=== PATIENT | male | born 1995 | race Caucasian/White ===

== ENCOUNTER 2016-09-05 23:08 | Emergency (ER) | payer OTHER ==
[~2016-09-05] VITALS: Ht 170.2 cm; Wt 75.0 kg
[2016-09-05 23:18] VITALS: Ht 170.2 cm; Wt 75.0 kg
[2016-09-06] MEDS ORDERED: NAPR-1169 PO (00:09)
--- NOTE | 2016-09-06 00:09 | EMERGENCY ROOM VISIT NOTE ---
ED Visit Note First contact with patient: 23:23 Chief Complaint: Ankle Isn't Working, RIGHT Side Constant Sharp Pain History of Present Illness: Patient is a 21-year-old male who presents to the emergency department today for evaluation of pain to the RIGHT ankle. He reports that while running today he noticed pain to the lateral aspect of the ankle. There is no initial injury, however. He reports no new shoes or changes in running styles recently. He does run regularly. The patient reports pain with ambulation. He denies any numbness or tingling into the distal extremity. He rates his current discomfort as a 4/10. He is tried no pxzm-spw-cldrqpl medications for symptoms to this point. He denies any fevers, chills, foot pain, calf pain, knee pain, or hip pain. The patient reports no previous history of fracture or injury to the affected area. Medications: No current medications. Allergies: No medication allergies. PMH: No pertinent past medical history. SHx: Patient is a 21-year-old [employer] student who lives with roommate. ROS: All pertinent positive and negative review of systems are appropriately documented in the History of Present Illness. Physical Exam: VITAL SIGNS - Vital signs and nursing notes were reviewed. GENERAL - 21-year-old male stated age and in noticeable discomfort throughout the exam. MUSCULOSKELETAL - RIGHT ankle without erythema, edema, and ecchymosis. Mild tenderness to palpation appreciated over the lateral surface of the posterior ankle overlying the tendon structures. No tenderness extending into the foot or up the leg. +5/5 strength appreciated bilaterally. Pt with full AROM at affected joint. ANTERIOR DRAWER TEST: Unremarkable. EVERSION TEST: Unremarkable. INVERSION TEST: Unremarkable. SQUEEZE TEST: Unremarkable. NEUROLOGIC/VASCULAR - Neurovascularly intact distally with +3/5 dorsalis pedis pulses palpated bilaterally. Normal sensation to light and sharp touch appreciated distally. IMAGING: RIGHT ANKLE MIN 3 VIEWS ROUTINE CLINICAL HISTORY: lateral pain Right pain COMPARISON: None. DISCUSSION: The bones and joint spaces appear intact. There is no evidence of fracture, dislocation or bony disease. There is no evidence for soft tissue swelling. IMPRESSION: Negative study. ED Course: Patient was seen and evaluated by myself. Patient declined anything for their complaint of pain. X-rays were obtained of the affected ankle. Imaging results as above. Images were discussed and reviewed with the patient who acknowledges understanding. Patient will utilize his own splint for comfort. Patient was provided Naprosyn for pain control at home. Patient educated on worrisome symptoms for return visit to the emergency department. Patient with follow-up with their primary care provided in 4-5 days if their symptoms are not improving. Patient discharged to home in good condition. In the evaluation and treatment of this patient, the following differential diagnoses were considered: Ankle Fracture, Ankle Sprain, Distal Fibula Fracture , Distal Tibia Fracture, Foot Fracture, Maisonneuve Fracture. Impression: RIGHT Ankle Pain - Strain Discharge Instructions: You have been treated in the Emergency Department for your RIGHT Ankle Pain - Tendon Strain. You have been prescribed Naprosyn (naproxen). This is an anti-inflammatory medication used to help decrease your symptoms and improve your pain. Please take this medication as prescribed. It is best to take this medication with food. Please to not take this antibiotic with other NSAIDS including: Ibuprofen , Advil, Motrin, Aspirin, Aleve, Celebrex, etc. For pain control, you can use the following ytgk-zbt-kbgaucl medicines (if >12 yo): - Regular strength (325mg/tab) Tylenol (acetaminophen) 2 tabs every 4-6 hours as needed. Do not exceed 12 tablets in a 24 hour period. Avoid taking more than 4 grams (4000 mg) of Tylenol per day. This includes any other sources of acetaminophen you may take on a regular basis. If this is a recent injury (<24 hrs), ice can be applied to the area of pain for the first 3 days to help decrease pain and inflammation. Use your ankle splint for comfort for the next several days. Follow-up with your primary care provider or Orthopedic Surgeon in 4-5 days if your symptoms are not improving despite the treatment plan outlined above. Return to the Emergency Department if your current symptoms worsen despite treatment course outlined above, or if you develop any of the following symptoms : intractable pain despite aforementioned treatment course or new onset of numbness or tingling of the foot. Problem List Medical Problems: (1) Asthma Status: Chronic Surgical Problems: (1) H/O hand surgery Status: Resolved (2) H/O wisdom tooth extraction Status: Resolved (3) Hx of tonsillectomy Status: Resolved Current/Historical Medications Scheduled Naproxen (Naprosyn), 500 MG PO BID Allergies Coded Allergies: Dust (Verified Allergy, Unknown, NASAL CONGESTION, 09/05/16) Ragweed (Verified Allergy, Unknown, NASAL CONGESTION, 09/05/16) Vital Signs Date Time Temp Pulse Resp B/P Pulse Ox O2 Delivery O2 Flow Rate FiO2 09/06/16 00:20 36.9 64 16 124/60 97 09/05/16 23:18 36.9 70 16 136/72 98 Room Air Departure Information Impression Primary Impression: Right ankle strain Dispostion Home / Self-Care Condition GOOD Prescriptions Naproxen (Naprosyn) 500 Mg Tab 500 MG PO BID for 10 Days, #20 TAB Prov: Peewee Nicole PA-C 09/06/16 Referrals No Doctor, Assigned (PCP) Patient Instructions My [facility] Additional Instructions You have been treated in the Emergency Department for your RIGHT Ankle Pain - Tendon Strain. You have been prescribed Naprosyn (naproxen). This is an anti-inflammatory medication used to help decrease your symptoms and improve your pain. Please take this medication as prescribed. It is best to take this medication with food. Please to not take this antibiotic with other NSAIDS including: Ibuprofen , Advil, Motrin, Aspirin, Aleve, Celebrex, etc. For pain control, you can use the following myrm-yxr-byctdil medicines (if >12 yo): - Regular strength (325mg/tab) Tylenol (acetaminophen) 2 tabs every 4-6 hours as needed. Do not exceed 12 tablets in a 24 hour period. Avoid taking more than 4 grams (4000 mg) of Tylenol per day. This includes any other sources of acetaminophen you may take on a regular basis. If this is a recent injury (<24 hrs), ice can be applied to the area of pain for the first 3 days to help decrease pain and inflammation. Use your ankle splint for comfort for the next several days. Follow-up with your primary care provider or Orthopedic Surgeon in 4-5 days if your symptoms are not improving despite the treatment plan outlined above. Return to the Emergency Department if your current symptoms worsen despite treatment course outlined above, or if you develop any of the following symptoms : intractable pain despite aforementioned treatment course or new onset of numbness or tingling of the foot. Problem Qualifiers Primary Impression: Right ankle strain Encounter type: initial encounter Qualified Codes: S96.911A - Strain of unspecified muscle and tendon at ankle and foot level, right foot, initial encounter
[2016-09-06 00:20] VITALS: BP 124/60; PULSE 64; TEMP 36.9; O2SAT 97
--- NOTE | 2016-09-06 06:48 | DIAGNOSTIC IMAGING REPORT ---
RIGHT ANKLE MIN 3 VIEWS ROUTINE CLINICAL HISTORY: lateral pain Right pain COMPARISON: None. DISCUSSION: The bones and joint spaces appear intact. There is no evidence of fracture, dislocation or bony disease. There is no evidence for soft tissue swelling. IMPRESSION: Negative study. Electronically signed by: Gabriel Lo M.D. 09/06/2016 6:46 AM Dictated Date/Time: 09/06/2016 6:45 AM
[2016-11-26] MEDS ORDERED: HYDR-5688 PO (09:13)
== END 2016-09-06 00:20 | disposition home or self-care (01) ==
LOC: C.EDB 23:10 → C.EDD 09-06 00:20
DX: S96.911A Strain of unspecified muscle and tendon at ankle and foot level, right foot, initial encounter (principal); X58.XXXA Exposure to other specified factors, initial encounter; J45.909 Unspecified asthma, uncomplicated; Z98.890 Other specified postprocedural states; Z98.818 Other dental procedure status; Z90.89 Acquired absence of other organs

== ENCOUNTER → 2016-11-26 | Day surgery (SDC) | payer OTHER ==
[2016-11-05 11:07] VITALS: Ht 170.2 cm; Wt 71.8 kg
[~2016-11-26] VITALS: Ht 170.2 cm; Wt 71.8 kg
[~2016-11-26] MED LIST: ATROPINE SULFATE 0.1 MG/ML 5ML SYR IV PRN; BUPIVACAINE 0.5 % 5 MG/1 ML MPF 30ML VIAL ONE; CEFAZOLIN 2000 MG/60 ML D5W IV SCH; DEXAMETHASONE SOD INJ 4 MG/ML VIAL ONE; EpHEDrine SULFATE INJ 50 MG/ML AMP IV PRN; FENTANYL CITRATE INJ 50 MCG/1 ML 2 ML VIAL IV PRN; FENTANYL CITRATE INJ 50 MCG/1 ML 2 ML VIAL ONE; HYDR-5688 PO; HYDROCODONE/ACETAMOPHEN 5/325MG TAB PO PRN; LACTATED RINGER'S 1000ML 1,000 ML IV SCH; LACTATED RINGER'S 1000ML 500 ML IV SCH; LIDOCAINE HCL 2% 2 ML VIAL (20MG/ML) ONE; MIDAZOLAM HCL 1 MG/ML 2ML VIAL ONE; ONDANSETRON INJ 2 MG/ML 2 ML VIAL IV PRN; ONDANSETRON INJ 2 MG/ML 2 ML VIAL ONE; PROMETHAZINE HCL INJ 6.25 MG in SODIUM CHLORIDE 0.9% 50ML 50 ML IV PRN; PROPOFOL IV EMULSION 10 MG/ML 20 ML VIAL IV ONE; SODIUM CHLORIDE 0.9% 1000ML 1,000 ML IV SCH
--- NOTE | 2016-11-26 08:18 | History & Physical Bridge - SC ---
H&P Re-Evaluation Bridge Note: I have examined the patient, reviewed the History & Physical and in the interval since the performance of the History & Physical I have noted the following changes of clinical significance: No changes noted
--- NOTE | 2016-11-26 09:11 | [facility] Post Operative Brief Note ---
Immediate Operative Summary Operative Date November 26, 2016. Pre-Operative Diagnosis Vernial Hernia Post-Operative Diagnosis Same Procedure(s) Performed Ventral Hernia Open Repair Surgeon kristy Shipboard Intelligence Analyst Surgeon(s) Emely banks Estimated Blood Loss 3 cc Findings 5mm defect 2 cm sac Specimens sac, contents Anesthesia LMA Complication(s) None Disposition Recovery Room / PACU
--- NOTE | 2016-11-26 09:16 | Discharge Instructions-SurgCtr ---
Discharge Instructions Date of Service November 26, 2016. Visit Reason for Visit: Ventral Hernia Discharge Discharge Diagnosis / Problem: ventral hernia Discharge Goals Goal(s): Decrease discomfort, Improve function, Improve disease control Activity Recommendations Activity Limitations: as noted below Lifting Limitations: until after follow-up appointment (lifting less than 20 lbs for 4 weeks) Exercise/Sports Limitations: until after follow-up appointment May Resume Sexual Activity: when tolerated Shower/Bathe: keep incision dry (may shower over incision on 11/28) Driving or Machine Use: resume 1 day after discharge SPECIAL CARE INSTRUCTIONS: * Cover incisions and change daily for comfort/drainage. * Leave steri strips in place * May use ibuprofen for pain as tolerated. * Expect some swelling and bruising. Call your doctor if: * Temperature above 101 degrees * Pain not relieved by pain medicine ordered * There is increased drainage or redness from any incision * You have any unanswered questions or concerns [phone]. FOLLOW UP VISIT: If not already scheduled, please call the office for a follow-up visit. for next week- removal of suture knots OFFICE PHONE NUMBER: Dr. Hernández Office Anesthesia . Post Anesthesia Instructions: If you have had General Anesthesia or IV Sedation: * Do not drive today. * Resume driving when surgeon permits. * Do not make important decisions or sign legal documents today. * Call surgeon for: 1. Temperature elevations greater than 101 degrees F. 2. Uncontrollable pain. 3. Excessive bleeding. 4. Persistent nausea and vomiting. 5. Medication intolerance (nausea, vomiting or rash). * For nausea and vomiting use only clear liquids such as: tea, soda, bouillon until nausea subsides, then gradually increase diet as tolerated. * If you have any concerns or questions, call your surgeon's office. If physician is unavailable and it is an emergency, call 911 or go to the nearest emergency room. . Diet Recommendations Home Diet: resume previous diet Procedures Procedures Performed: Ventral Hernia Open Repair Pending Studies Studies pending at discharge: no Medical Emergencies . Who to Call and When: Medical Emergencies: If at any time you feel your situation is an emergency, please call 911 immediately. . Non-Emergent Contact Non-Emergency issues call your: Primary Care Provider, Surgeon . . "Provider Documentation" section prepared by Octavio Hernández. .
--- NOTE | 2016-11-26 09:30 | OPERATIVE REPORT ---
DATE OF OPERATION: 11/26/2016 NAME OF OPERATION: Ventral hernia repair. PREOPERATIVE DIAGNOSIS: Ventral hernia. POSTOPERATIVE DIAGNOSIS: Same. STAFF SURGEON: Dr. Hernández. POULTRY FARMWORKER: Hafsa Han PA-C. ANESTHESIA: General LMA. PROCEDURE: The patient was brought in the operating room and placed on the operating table in supine position. His abdomen was prepped and draped in usual fashion. The sac was palpable approximately 3-4 cm above the umbilicus. A transverse incision was made using 0.5% plain Marcaine to anesthetize the skin. Dissection was carried down identifying the sac which was excised. The contents were preperitoneal fat. This was reduced through a 5 mm defect. So the sac was approximately 2 cm, this defect was 0.5 cm. At this point, the defect was closed using 0 Ethibond suture. Subcutaneous tissue reapproximated using 2-0 chromic catgut suture, then the skin reapproximated using subcuticular 5-0 Monocryl with Steri-Strips. Dressing applied and the patient transferred to recovery room in stable condition. I attest to the content of the Intraoperative Record and any orders documented therein. Any exceptions are noted below. MTDD
[2016-11-26 10:01] VITALS: TEMP 36.7
[2016-11-26 10:30] VITALS: BP 123/78; PULSE 57; O2SAT 100
--- NOTE | 2016-11-26 10:44 | Anesthesia Progress Nt - [facility] ---
Anesthesia Post Op Note Date & Time November 26, 2016 at 10:44 Vital Signs Pain Intensity: 3 Vital Signs Past 12 Hours Date Time Temp Pulse Resp B/P Pulse Ox O2 Delivery O2 Flow Rate FiO2 11/26/16 10:30 57 16 123/78 100 Room Air 11/26/16 10:01 36.7 58 16 114/72 100 Room Air 11/26/16 09:52 74 12 100 11/26/16 09:52 73 12 11/26/16 09:50 36.6 68 16 118/76 99 Room Air 11/26/16 09:50 118/76 11/26/16 09:47 74 16 99 11/26/16 09:47 76 16 11/26/16 09:46 112/71 11/26/16 09:42 70 12 11/26/16 09:42 71 12 100 11/26/16 09:40 129/65 11/26/16 09:37 62 3 100 11/26/16 09:37 62 3 11/26/16 09:35 107/53 11/26/16 09:32 70 4 100 11/26/16 09:32 68 4 11/26/16 09:31 67 0 109/64 100 11/26/16 09:31 66 0 11/26/16 09:27 36.6 77 20 109/54 100 Mask 8 11/26/16 09:26 18 11/26/16 09:26 74 18 11/26/16 07:52 36.8 79 20 123/63 95 Room Air Notes Mental Status: alert / awake / arousable, participated in evaluation Pt Amnestic to Procedure: Yes Nausea / Vomiting: adequately controlled Pain: adequately controlled Airway Patency, RR, SpO2: stable & adequate BP & HR: stable & adequate Hydration State: stable & adequate Anesthetic Complications: no major complications apparent
== END | disposition home or self-care (01) ==
LOC: X.SURG 07:34
PROVIDERS: ATTEND Surgery
DX: K43.9 Ventral hernia without obstruction or gangrene (principal)

== ENCOUNTER → 2017-11-14 | Outpatient (CLI) | payer OTHER ==
--- NOTE | 2017-11-14 15:11 | ECHOCARDIOGRAM REPORT ---
*NOTICE TO RECEIVING CONSTITUTION PARTY AGENCY This information is strictly Confidential and protected under [place] law. [place] law prohibits you from making any further disclosure of this information unless further disclosure is expressly permitted by the written consent of the person to whom it pertains or is authorized by law. A general authorization for the release of medical or other information is not sufficient for this purpose. Hospital accepts no responsibility if the information is made available to any other person, INCLUDING THE PATIENT. Interpretation Summary * Name: DIANE HANSON Study Date: 11/14/2017 01:06 PM BP: 110/65 mmHg * Patient Location: [facility] HR: 63 * : 1995 (M/d/yyyy) Gender: Male Height: 67 in * Age: 22 yrs Ethnicity: [place] Weight: 165 lb * Ordering Physician: Emely Castillo * Referring Physician: Emely Castillo * Performed By: Darcie Wilcox RDCS * * Reason For Study: CARDIAC MURMUR * BSA: 1.9 m2 * -- Conclusions -- * Left ventricular systolic function is normal. * No regional wall motion abnormalities noted. * Ejection Fraction = 60-65%. * No significant valvular pathology. Procedure Details * A complete two-dimensional transthoracic echocardiogram was performed (2D, M-mode, Doppler and color flow Doppler). Left Ventricle * The left ventricle is grossly normal size. * There is normal left ventricular wall thickness. * Ejection Fraction = 60-65%. * Left ventricular systolic function is normal. * No regional wall motion abnormalities noted. Right Ventricle * The right ventricle is normal size. * The right ventricular systolic function is normal as assessed by tricuspid annular plane systolic excursion (TAPSE) (normal >1.5 cm). Atria * The left atrial size is normal. * Right atrial size is normal. * No ASD detected; PFO is not assessed. Mitral Valve * The mitral valve is normal in structure and function. * There is no mitral valve stenosis. * There is trace mitral regurgitation. Tricuspid Valve * The tricuspid valve is normal in structure and function. * There is no tricuspid stenosis. * No tricuspid regurgitation. Aortic Valve * The aortic valve is normal in structure and function. * No hemodynamically significant valvular aortic stenosis. * No aortic regurgitation is present. Pulmonic Valve * The pulmonary valve is not well seen, but the Doppler examination is normal without significant regurgitation or stenosis. Great Vessels * The aortic root and proximal ascending aorta are normal sized. * The pulmonary artery is not well visualized, but is probably normal size. Pericardium/Pleural * There is no pericardial effusion. Great Vessels * Normal inferior vena cava size and collapsability with sniff indicates a normal right atrial pressure of 3 mmHg MMode 2D Measurements and Calculations IVSd 0.80 cm IVSs 1.2 cm LVIDd 5.1 cm LVIDs 3.3 cm LVPWd 0.83 cm LVPWs 1.5 cm IVS/LVPW 0.97 FS 36.2 % EDV(Teich) 126.2 ml ESV(Teich) 43.5 ml EF(Teich) 65.5 % EDV(cubed) 135.9 ml ESV(cubed) 35.3 ml EF(cubed) 74.0 % % IVS thick 55.5 % % LVPW thick 83.5 % LV mass(C)d 145.5 grams LV mass(C)dI 78.1 grams/m\S\2 LV mass(C)s 154.7 grams LV mass(C)sI 83.0 grams/m\S\2 SV(Teich) 82.7 ml SI(Teich) 44.4 ml/m\S\2 SV(cubed) 100.6 ml SI(cubed) 54.0 ml/m\S\2 Ao root diam 3.0 cm Ao root area 7.2 cm\S\2 LA dimension 3.7 cm LA/Ao 1.2 LVAd ap4 40.9 cm\S\2 LVLd ap4 10.2 cm EDV(MOD-sp4) 135.6 ml EDV(sp4-el) 139.2 ml LVAs ap4 23.8 cm\S\2 LVLs ap4 8.8 cm ESV(MOD-sp4) 52.9 ml ESV(sp4-el) 54.7 ml EF(MOD-sp4) 61.0 % EF(sp4-el) 60.7 % LVAd ap2 39.6 cm\S\2 LVLd ap2 10.5 cm EDV(MOD-sp2) 129.6 ml EDV(sp2-el) 127.3 ml LVAs ap2 22.2 cm\S\2 LVLs ap2 9.0 cm ESV(MOD-sp2) 45.8 ml ESV(sp2-el) 46.4 ml EF(MOD-sp2) 64.7 % EF(sp2-el) 63.5 % LVLd %diff 2.5 % EDV(MOD-bp) 133.4 ml LVLs %diff 2.4 % ESV(MOD-bp) 49.7 ml EF(MOD-bp) 62.8 % SV(MOD-sp4) 82.7 ml SI(MOD-sp4) 44.4 ml/m\S\2 SV(MOD-sp2) 83.8 ml SI(MOD-sp2) 45.0 ml/m\S\2 SV(MOD-bp) 83.7 ml SI(MOD-bp) 44.9 ml/m\S\2 SV(sp4-el) 84.5 ml SI(sp4-el) 45.3 ml/m\S\2 SV(sp2-el) 80.9 ml SI(sp2-el) 43.4 ml/m\S\2 Doppler Measurements and Calculations MV E max delaney 84.5 cm/sec MV dec time 0.27 sec Ao V2 max 122.0 cm/sec Ao max PG 6.0 mmHg Ao max PG (full) 2.9 mmHg LV V1 max PG 3.0 mmHg LV V1 max 87.1 cm/sec
== END | disposition home or self-care (01) ==
LOC: C.CPL 12:55
PROVIDERS: ATTEND Nurse Practitioner Adult Health
DX: R01.1 Cardiac murmur, unspecified (principal)